=== PATIENT | female | born 1990 ===

== ENCOUNTER 2022-04-08 13:15 | Inpatient (IN) | payer OTHER ==
[~2022-04-08] VITALS: Ht 157.5 cm; Wt 2.7 kg
[2022-04-13] MEDS ORDERED: PRENATABS RX T1 EACH PO (10:38)
== END 2022-04-15 11:56 | disposition home or self-care (01) | DRG 788 ==
LOC: LDR 04-13 06:53 → OB/GYN 04-13 22:44
PROVIDERS: ADMIT Obstetrics & Gynecology; ATTEND Obstetrics & Gynecology
PROC: 4A1HXCZ Monitoring of Products of Conception, Cardiac Rate, External Approach (ICD-10-PCS; 2022-04-13)
PROC: 10D00Z1 Extraction of Products of Conception, Low, Open Approach (ICD-10-PCS; principal; 2022-04-13 20:45)
DX: O33.8 Maternal care for disproportion of other origin (principal); O48.0 Post-term pregnancy; Z3A.40 40 weeks gestation of pregnancy; Z37.0 Single live birth; Z20.822 Contact with and (suspected) exposure to COVID-19